=== PATIENT | female | born 1970 | race Caucasian/White ===

== ENCOUNTER 2019-08-26 22:36 | Inpatient (IN) | payer BC ==
[2019-08-27] MEDS ORDERED: Ketorolac INJ* 30 MG/ML 1 ML VIAL IV PUSH ONE (00:56)
--- NOTE | 2019-08-27 00:59 | ED ---
Abdominal Pain/Female - HPI Summary HPI Summary: 48 year old F presenting to [facility] accompanied by complains of worsening RLQ, LLQ, suprapubic pain radiating down her right lower extremity since 2019 AM. No RUQ pain. Patient reports nausea/vomiting 1300 08/25/2019 to 0400 2019. She states she woke up 08/26/2019 AM with abdominal pain. Took Tylenol with some relief. Patient developed chills and diaphoresis 08/26/2019 PM. She states her abdominal pain has been getting worse since 2100 08/26/2019. She states she took ibuprofen a few hours prior to arrival with some relief. Patient reports constipation. No diarrhea. The patient rates the pain 10/10 in severity. Symptoms aggravated by standing up and palpation. Symptoms alleviated by Tylenol and ibuprofen. Medications reviewed. No renal hx. Surgical hx caesarean sections. - History of Current Complaint Chief Complaint: EDAbdPain Stated Complaint: ABD PAIN Time Seen by Provider: 08/27/19 00:50 Hx Obtained From: Patient Onset/Duration: Lasting Hours, Still Present Timing: Constant Severity Currently: Severe Pain Intensity: 10 Pain Scale Used: 0-10 Numeric Location: Discrete At: RLQ, Discrete At: LLQ, Suprapubic Radiates: Yes Radiates to: Other - right lower extremity Aggravating Factor(s): Other: - standing up and palpation Alleviating Factor(s): Other: - Tylenol and ibuprofen Associated Signs and Symptoms: Positive: Diaphoresis, Constipation, Nausea, Vomiting, Other: - chills. Negative: Diarrhea Allergies/Adverse Reactions: Allergies Allergy/AdvReac Type Severity Reaction Status Date / Time No Known Allergies Allergy Verified 08/26/19 22:41 Home Medications: Home Medications Norethindrone-Ethinyl Estrad [Nortrel 0.5-35-28 Tablet] 1 tab PO DAILY 08/27/19 [History Confirmed 08/27/19] PMH/Surg Hx/FS Hx/Imm Hx History: Denies: Hx Acute Renal Failure, Hx Chronic Renal Failure, Hx Dialysis, Hx Kidney Infection, Hx Kidney Stones, Hx Renal Disease Musculoskeletal History: Reports: Hx Arthritis, Hx of Fracture(s) Sensory History: Reports: Hx Contacts or Glasses Opthamlomology History: Reports: Hx Contacts or Glasses - Cancer History Hx Chemotherapy: No Hx Radiation Therapy: No - Surgical History Surgery Procedure, Year, and Place: section Infectious Disease History: No Infectious Disease History: Denies: Traveled Outside the [place] in Last 30 Days - Family History Known Family History: Positive: Other - NEG: Breast cancer - Social History Alcohol Use: Occasionally Substance Use Type: Reports: None Hx Tobacco Use: No Smoking Status (MU): Never Smoked Tobacco Review of Systems Positive: Chills, Skin Diaphoresis Positive: Abdominal Pain, Vomiting, Nausea, Other - constipation. Negative: Diarrhea All Other Systems Reviewed And Are Negative: Yes Physical Exam - Summary Physical Exam Summary: Appearance: Patient is an uncomfortable appearing woman who is otherwise in no acute distress Skin: Warm, dry, no obvious rash Eyes: sclera anicteric, no conjunctival pallor ENT: mucous membranes moist, pharynx appears normal Neck: Supple, nontender Respiratory: Clear to auscultation, no signs of respiratory distress Cardiovascular: Normal S1, S2. No murmurs. Normal distal pulses in tibial and radial bilaterally. Abdomen: Patient is quite apprehensive when palpated anywhere in her abdomen. It was difficult to localize her tenderness. No abdominal distension. Normal active bowel sounds Musculoskeletal: Normal, Strength/ROM Intact Neurological: A&Ox3, awake and alert, mentation is normal, speech is fluent and appropriate Psychiatric: affect is normal, does not appear anxious or depressed Triage Information Reviewed: Yes Vital Signs On Initial Exam: Initial Vitals Temp Pulse Resp BP Pulse Ox 96.1 F 88 20 150/103 98 08/26/19 22:39 08/26/19 22:39 08/26/19 22:39 08/26/19 22:39 08/26/19 22:39 Vital Signs Reviewed: Yes Procedures - Sedation Patient Received Moderate/Deep Sedation with Procedure: No Diagnostics - Vital Signs Vital Signs Temp Pulse Resp BP Pulse Ox 08/26/19 22:39 96.1 F 88 20 150/103 98 - Laboratory Result Diagrams: 08/29/19 09:42 08/29/19 09:40 Lab Statement: Any lab studies that have been ordered have been reviewed, and results considered in the medical decision making process. - CT ABD/PEL CT Interpretation Completed By: Radiologist Summary of CT Findings: 1. Acute appendicitis. 2. Small amount of free intraperitoneal fluid. 3. Enlarged uterus. 4. Mild alveolar opacities in the lower lungs bilaterally suggesting small pneumonias. ED physician has reviewed this report. Re-Evaluation - Re-Evaluation First Eval Re-Evaluation Time: 05:08 Comment: [facility] radiologist called to report ABD/PEL CT findings Second Eval Re-Evaluation Time: 05:14 Comment: patient and updated on CT ABD/PEL findings Abdominal Pain Fem Course/Dx - Course Course Of Treatment: 48 y/o F c/o worsening RLQ, LLQ, suprapubic pain radiating down her right lower extremitysince 08/26/2019 AM. Patient reports vomiting 1300 to 0400 08/26/2019. She states she woke up 08/26/2019 AM with abdominal pain. Took Tylenol with some relief. Patient developed chills and diaphoresis 08/26/2019 PM. She states her abdominal pain has been getting worse since 2100 2019. She states she took ibuprofen with some relief. Patient reports constipation. No diarrhea. Upon exam, the patient is an uncomfortable appearing woman who is otherwise in no acute distress. Patient is quite apprehensive when palpated anywhere in her abdomen. It was difficult to localize her tenderness. No abdominal distension. Normal active bowel sounds. Bloodwork with no significant abnormalities except for WBC 15.8, RBC 5.11, sodium 134, carbon dioxide 21, creatinine 1.43, glucose 141, total bilirubin 1.40, CRP 374.25, lipase <10. Urinalysis with no significant abnormalities except for protien 2+, trace ketones, bilirubin 1+, WBC 2+, bacteria 1+, glucose 1+. In the ED course, the patient was given morphine, normal saline fluids, ketorolac. ABD/PEL CT shows per radiologist: 1. Acute appendicitis. 2. Small amount of free intraperitoneal fluid. 3. Enlarged uterus. 4. Mild alveolar opacities in the lower lungs bilaterally suggesting small pneumonias. Patient started on Zosyn. Spoke with Dr. Lopes surgery who agrees to admit patient. - Diagnoses Provider Diagnoses: Appendicitis - Provider Notifications Discussed Care Of Patient With: El Noble Discussed With Above Provider: 06:05 Instructed by Provider To: Admit As Inpatient Discharge ED - Sign-Out/Discharge Documenting (check all that apply): Patient Departure - Discharge Plan Condition: Good Disposition: ADMITTED TO [facility] - Billing Disposition and Condition Condition: GOOD Disposition: Admitted to [facility] - Attestation Statements Document Initiated by Gale: Yes Documenting Scribe: Coreen Schilling Provider For Whom Gale is Documenting (Include Credential): Sumit Victoria MD Scribe Attestation: Coreen Rosales, scribed for Sumit Victoria MD on 08/30/19 at 0631. Scribe Documentation Reviewed: Yes Provider Attestation: The documentation as recorded by the [email or web address] accurately reflects the service I personally performed and the decisions made by me, Sumit Victoria MD Status of Scribe Document: Viewed
[2019-08-27 01:11] LABS: Hematocrit 45 % (35-47); Hemoglobin 15.8 g/dL (12.0-16.0); Mean Corpuscular HGB Conc 35 g/dL (31-36); Mean Corpuscular Hemoglobin 31 pg (27-31); Mean Corpuscular Volume 89 fL (80-97); Mean Platelet Volume 9.4 fL (7.4-10.4); Platelet Count 291 10^3/uL (150-450); Red Blood Count 5.11 10^6 /uL (3.70-4.87); Red Cell Distribution Width 13 % (10-15); White Blood Count 15.8 10^3/uL (3.5-10.8)
[2019-08-27 01:27] LABS: ALT 24 U/L (7-52); AST 14 U/L (13-39); Albumin 4.4 g/dL (3.2-5.2); Albumin/Globulin Ratio 1.2 (1-3); Alkaline Phosphatase 71 U/L (34-104); Anion Gap 11 mmol/L (2-11); BUN/Creatinine Ratio 9.8 (8-20); Blood Urea Nitrogen 14 mg/dL (6-24); C Reactive Protein 374.25 mg/L (<8.01); CO2 Carbon Dioxide 21 mmol/L (22-32); Calcium 9.6 mg/dL (8.6-10.3); Chloride 102 mmol/L (101-111); EGFR African American 47.8 (>60); EGFR Non-African American 39.5 (>60); Globulin 3.6 g/dL (2-4); Glucose 141 mg/dL (70-100); Potassium 3.7 mmol/L (3.5-5.0); Sodium 134 mmol/L (135-145)
[2019-08-27 02:15] LABS: Urine Appearance Cloudy; Urine Bilirubin 1+ (Negative); Urine Blood Negative (Negative); Urine Color Amber; Urine Glucose 1+(50 mg/dL) (Negative); Urine Ketones Trace (Negative); Urine Nitrite Negative (Negative); Urine Protein 2+(100 mg/dL) (Negative); Urine Specific Gravity 1.032 (1.010-1.030); Urine Urobilinogen Negative (Negative)
[2019-08-27 02:18] LABS: Urine Bacteria 1+ (Absent); Urine Red Blood Cell Absent (Absent); Urine Squamous Epithelial Cell Present (Absent); Urine Transitional Epithelial Present (Absent); Urine White Blood Cell 2+(11-20/hpf) (Absent)
[2019-08-27] MEDS ORDERED: Morphine 4 MG/ML VIAL (1 ml) 4 MG/ML VIAL IV PRN (02:19)
[2019-08-27] MEDS ORDERED: NS 0.9% 1000 ML** 2,000 ML IV ONE (02:19)
[2019-08-27] MEDS ORDERED: Morphine 4 MG/ML VIAL (1 ml) 4 MG/ML VIAL IV ONE (02:19)
[2019-08-27] MEDS ORDERED: Iodixanol* (CONTRAST) 320 MG/ML 100 ML SDV IV ONE (03:22)
[2019-08-27] MEDS ORDERED: Piperacillin/Tazobac ADVAN(*) 3.375 GM in NS 0.9% 100 ML* 100 ML IVPB ONE (04:32)
[2019-08-27] MEDS ORDERED: NS 0.9% 1000 ML** 1,000 ML IV SCH ×2 (04:45→08:45)
[2019-08-27] MEDS ORDERED: Lactated Ringers 1000 ML Bag* 1,000 ML IV SCH (05:00)
[2019-08-27 05:17] LABS: ABS Basophils 0.1 10^3/ul (0-0.2); ABS Lymphocytes 0.9 10^3/ul (1.0-4.8); ABS Monocytes 0.8 10^3/ul (0-0.8); ABS Neutrophils 13.9 10^3/ul (1.5-7.7)
[2019-08-27] MEDS ORDERED: HYDROmorphone INJ* 0.5 MG/0.5 ML SYRINGE IV SLOW PU PRN (06:05)
[2019-08-27] MEDS ORDERED: Ondansetron INJ* 2 MG/ML VIAL IV PRN ×2 (06:05→08:40)
[2019-08-27] MEDS ORDERED: Acetaminophen TAB* 325 MG PO PRN (06:05)
[2019-08-27] MEDS ORDERED: HYDROmorphone INJ1* 1 MG/ML SYRINGE IV SLOW PU PRN (08:40)
[2019-08-27] MEDS ORDERED: Piperacillin/Tazobactam VIAL*) 3.375 GM in NS 0.9% 100 ML* 100 ML IVPB SCH ×2 (09:00)
[2019-08-27] MEDS: HYDROmorphone INJ* 0.5 MG/0.5 ML SYRINGE IV SLOW PU PRN (09:54)
--- NOTE | 2019-08-27 10:59 | HP ---
<NirajDemetrius - Last Filed: 08/27/19 17:14> History of Present Illness - History of Present Illness Reason for Visit: Abdominal Pain History of Present Illness: 48 yo female presents with 2 day hx of Nausea and vomiting ans abdominal pain. Thought she had "the bug". No diarrhea, + constipation, last bm 2 days ago. Yesterday started having abdominal pain, crampy at first, superpubic, and across lower abdomen, then becoming sharp, continuous, couldn't find relief, came to ED. Low grade temps. Seen now in ED, in mild distress. - Past Medical History Dermatology: Basal cell - Past Surgical History Past Surgical History: - Past Family History Family History: Other - BCC, Prostate cancer father, BCC parents - Past Social History Smoke: No Occupation: Teacher Alcohol: Occasional Drugs: None Lives: With Family Domestic Violence: Negative Review of Systems - Review of Systems Constitutional: Positive: Fever - Sharp Abdominal pain RLQ, Other Eyes: Negative: Pain, Vision Change, Conjunctivae Inflammation, Eyelid Inflammation, Redness, Other ENT: Negative: Ear Pain, Ear Discharge, Nose Pain, Nose Discharge, Nose Congestion, Mouth Pain, Mouth Swelling, Throat Pain, Throat Swelling, Other Respiratory: Negative: Cough, Dry, Shortness of Breath, Hemoptysis, SOB with Excertion, Pleuritic Pain, Sputum, Wheezing Cardiovascular: Negative: Chest Pain, Palpitations, Orthopnea, Paroxysmal Noc. Dyspnea, Edema, Light Headedness, Other Gastrointestinal: Positive: Nausea, Vomiting, Abdominal Pain, Constipation Genitourinary: Negative: Dysuria, Frequency, Incontinence, Hematuria, Retention , Other Musculoskeletal: Positive: Other - hip pain Neurological: Negative: Weakness, Numbness, Incoordination, Change in Speech, Confusion, Seizures, Other - Medications/Allergies Allergies/Adverse Reactions: Allergies Allergy/AdvReac Type Severity Reaction Status Date / Time No Known Allergies Allergy Verified 08/26/19 22:41 Medications: Current Medications Acetaminophen (Tylenol Tab*) 650 mg PO Q4H PRN PRN Reason: TEMPERATURE > 100.4 Hydromorphone HCl (Dilaudid Inj*) 0.5 mg IV SLOW PU Q1H PRN PRN Reason: PAIN - SEVERE Last Admin: 08/27/19 09:54 Dose: 0.5 mg Sodium Chloride (Ns 0.9% 1000 Ml) 1,000 mls @ 175 mls/hr IV PER RATE [facility] Last Admin: 08/27/19 06:30 Dose: 175 mls/hr Sodium Chloride (Ns 0.9% 1000 Ml) 1,000 mls @ 125 mls/hr IV PER RATE JESSICA Sodium Chloride (Ns 0.9% 1000 Ml) 1,000 mls @ 150 mls/hr IV PER RATE [facility] Piperacillin Sod/Tazobactam (Sod 3.375 gm/ Sodium Chloride) 100 mls @ 25 mls/ hr IVPB Q8H [facility] Last Admin: 08/27/19 10:19 Dose: 25 mls/hr Morphine Sulfate (Morphine 4 Mg/Ml Vial (1 Ml)) 4 mg IV Q1H PRN PRN Reason: PAIN - MODERATE Last Admin: 08/27/19 05:18 Dose: 4 mg Ondansetron HCl (Zofran Inj*) 4 mg IV Q4H PRN PRN Reason: NAUSEA/VOMITING Exam - Exam Vital Signs: Vital Signs Temp 99.6 F 08/27/19 10:24 Pulse 103 08/27/19 10:24 Resp 20 08/27/19 10:24 BP 131/80 08/27/19 10:24 Pulse Ox 92 08/27/19 10:24 Intake & Output 08/26/19 08/27/19 08/27/19 18:59 06:59 18:59 Intake Total 2100 Balance 2100 Weight 195 lb Intake: IV Fluids 2100 Laboratory Tests 08/27/19 08/27/19 01:02 01:02 WBC 15.8 H C-Reactive Protein 374.[address] 08/27/2019 IMPRESSION: 1. Acute appendicitis. 2. Small amount of free intraperitoneal fluid. 3. Enlarged uterus. 4. Mild alveolar opacities in the lower lungs bilaterally suggesting small pneumonias. General: Alert, Oriented x3, Cooperative, Mild distress HEENT: Atraumatic, EOMI, Mucous membr. moist/pink Lungs: Clear to auscultation Cardiovascular: Other - Tachy at 106 Abdomen: Normal bowel sounds, Soft, Other - ++ Tenderness RLQ, +LLQ Extremities: Other - calves soft non tender Skin: No rashes Neurological: Cranial nerves 3-12 NL Psych/Mental Status: Mental status NL, Mood NL Assessment/Plan - Assessment/Plan Assessment: 48 yo female with 2 day hx of N/V, Abdominal pain now localized to the RLQ, WBC 15.8. CRP 375, CT findings of acute appendicitis Plan: Admit NPO IV Zosyn has been started, continue Q6 hrs IV Analgesia For OR later today Patient has been seen and examined by Dr Sorto. Risks and benefits of surgery have been discussed with patient and her . All questions were answered. <Bart Sorto - Last Filed: 08/28/19 09:13> History of Present Illness - History of Present Illness History of Present Illness: Patient seen and examined prior to KEVIN visit. Two-day history of abdominal pain with CT evidence of acute appendicitis. Acute renal failure and SIRS. I recommend urgent appendectomy. Details of procedure: The risks, benefits and alternatives. I discussed with the patient that possibly my partner would be doing the procedure. Review of Systems - Medications/Allergies Medications: Current Medications Acetaminophen (Tylenol Tab*) 650 mg PO Q4H PRN PRN Reason: PAIN-MILD/TEMP >/= 100.4 Last Admin: 08/27/19 20:31 Dose: 650 mg Hydromorphone HCl (Dilaudid Inj*) 0.5 mg IV SLOW PU Q1H PRN PRN Reason: PAIN - SEVERE Last Admin: 08/28/19 03:59 Dose: 0.5 mg Sodium Chloride (Ns 0.9% 1000 Ml) 1,000 mls @ 125 mls/hr IV PER RATE [facility] Last Admin: 08/28/19 08:14 Dose: 125 mls/hr Piperacillin Sod/Tazobactam (Sod 3.375 gm/ Sodium Chloride) 100 mls @ 25 mls/ hr IVPB 0200,1000,1800 [facility] Last Admin: 08/28/19 02:00 Dose: 25 mls/hr Ibuprofen (Motrin Tab*) 600 mg PO Q6H PRN PRN Reason: PAIN - MILD Morphine Sulfate (Morphine 4 Mg/Ml Vial (1 Ml)) 4 mg IV Q1H PRN PRN Reason: PAIN - MODERATE Last Admin: 08/27/19 05:18 Dose: 4 mg Ondansetron HCl (Zofran Inj*) 4 mg IV Q4H PRN PRN Reason: NAUSEA/VOMITING Oxycodone/Acetaminophen (Percocet 5/325 Tab*) 1 tab PO Q4H PRN PRN Reason: PAIN - MODERATE Pharmacy Consult (Zosyn Per Pharmacy*) 1 note FOLLOW UP .ZOSYN PER PHARMACY [facility] Potassium Chloride (Klor Con Er Tab*) 20 meq PO BID [facility] Stop: 08/28/19 21:01 Exam - Exam Vital Signs: Vital Signs (72 hours) 08/26/19 08/27/19 08/27/19 22:39 00:54 00:59 Temperature 96.1 F Pulse Rate 88 111 112 Respiratory 20 Rate Blood Pressure 150/103 119/81 (mmHg) O2 Sat by Pulse 98 97 Oximetry 08/27/19 08/27/19 08/27/19 01:01 01:03 01:24 Temperature Pulse Rate 114 111 101 Respiratory Rate Blood Pressure 108/77 100/76 (mmHg) O2 Sat by Pulse 97 94 97 Oximetry 08/27/19 08/27/19 08/27/19 02:00 02:24 02:32 Temperature Pulse Rate 114 99 Respiratory 17 Rate Blood Pressure 133/80 (mmHg) O2 Sat by Pulse 97 98 Oximetry 08/27/19 08/27/19 08/27/19 02:54 03:00 03:23 Temperature Pulse Rate 82 86 87 Respiratory Rate Blood Pressure 93/70 114/77 (mmHg) O2 Sat by Pulse 97 97 96 Oximetry 08/27/19 08/27/19 08/27/19 03:54 04:00 04:29 Temperature Pulse Rate 90 91 107 Respiratory Rate Blood Pressure 123/73 130/87 (mmHg) O2 Sat by Pulse 95 94 96 Oximetry 08/27/19 08/27/19 08/27/19 04:49 04:54 05:00 Temperature 98.8 F Pulse Rate 102 103 102 Respiratory 17 Rate Blood Pressure 130/87 113/79 (mmHg) O2 Sat by Pulse 96 95 95 Oximetry 08/27/19 08/27/19 08/27/19 05:18 05:24 05:53 Temperature Pulse Rate 99 94 Respiratory 19 Rate Blood Pressure 110/78 117/75 (mmHg) O2 Sat by Pulse 96 96 Oximetry 08/27/19 08/27/19 08/27/19 06:00 06:23 06:31 Temperature 98.6 F Pulse Rate 95 94 97 Respiratory 15 Rate Blood Pressure 117/76 117/76 (mmHg) O2 Sat by Pulse 94 95 96 Oximetry 08/27/19 08/27/19 08/27/19 06:53 06:56 07:01 Temperature Pulse Rate 95 97 Respiratory 19 Rate Blood Pressure 116/75 (mmHg) O2 Sat by Pulse 94 93 Oximetry 08/27/19 08/27/19 08/27/19 07:24 07:54 08:01 Temperature Pulse Rate 101 96 94 Respiratory Rate Blood Pressure 113/82 116/79 (mmHg) O2 Sat by Pulse 94 94 93 Oximetry 08/27/19 08/27/19 08/27/19 08:18 08:24 08:54 Temperature Pulse Rate 105 107 Respiratory 20 Rate Blood Pressure 128/80 139/104 (mmHg) O2 Sat by Pulse 92 91 Oximetry 08/27/19 08/27/19 08/27/19 09:00 09:24 09:54 Temperature Pulse Rate 99 102 98 Respiratory 20 Rate Blood Pressure 130/79 117/80 (mmHg) O2 Sat by Pulse 93 93 94 Oximetry 08/27/19 08/27/19 08/27/19 10:00 10:24 13:38 Temperature 99.6 F 97.7 F Pulse Rate 96 103 Respiratory 20 20 Rate Blood Pressure 131/80 (mmHg) O2 Sat by Pulse 93 92 Oximetry 08/27/19 08/27/19 08/27/19 13:41 13:46 13:50 Temperature Pulse Rate 114 111 102 Respiratory 20 24 Rate Blood Pressure 156/85 136/87 120/70 (mmHg) O2 Sat by Pulse 96 90 93 Oximetry 08/27/19 08/27/19 08/27/19 13:55 14:00 14:15 Temperature Pulse Rate 99 98 91 Respiratory 19 19 19 Rate Blood Pressure 109/70 113/72 117/67 (mmHg) O2 Sat by Pulse 92 93 95 Oximetry 08/27/19 08/27/19 08/27/19 14:30 14:45 14:50 Temperature 98.7 F Pulse Rate 90 89 84 Respiratory 19 16 14 Rate Blood Pressure 114/72 115/67 109/63 (mmHg) O2 Sat by Pulse 95 96 93 Oximetry 08/27/19 08/27/19 08/27/19 15:02 15:59 16:52 Temperature 99.1 F 98.5 F 98.8 F Pulse Rate 97 80 84 Respiratory 20 14 18 Rate Blood Pressure 130/69 110/72 116/66 (mmHg) O2 Sat by Pulse 96 96 97 Oximetry 08/27/19 08/27/19 08/27/19 18:46 20:00 21:06 Temperature 97.1 F 98.4 F Pulse Rate 91 89 Respiratory 24 17 22 Rate Blood Pressure 116/65 108/61 (mmHg) O2 Sat by Pulse 97 93 Oximetry 08/27/19 08/28/19 08/28/19 23:07 03:09 03:59 Temperature 98.1 F 98.1 F Pulse Rate 87 81 Respiratory 17 17 17 Rate Blood Pressure 116/65 111/64 (mmHg) O2 Sat by Pulse 98 95 Oximetry 08/28/19 08/28/19 05:42 07:53 Temperature 98.7 F Pulse Rate 84 Respiratory 16 14 Rate Blood Pressure 109/63 (mmHg) O2 Sat by Pulse 93 Oximetry
[2019-08-27] MEDS ORDERED: Bupivacaine 0.25% SDV* 30 ML ONE (11:44)
[2019-08-27] MEDS ORDERED: HYDROmorphone INJ1* 1 MG/ML SYRINGE ONE (12:03)
[2019-08-27] MEDS ORDERED: Propofol* 10 MG/ML 20 ML BTL ONE (12:03)
[2019-08-27] MEDS ORDERED: Rocuronium* 10 MG/ML VIAL ONE ×2 (12:03→12:52)
--- NOTE | 2019-08-27 12:14 | PN ---
Progress Note - Progress Note Date of Service: 08/27/19 Note: Surgery Progress Note I was called to see this patient by Dr. Sorto. Briefly, patient is a 48 yo F with nausea, emesis and diffuse abdominal pain since Saturday, which worsened last night. She presented to the ED and was found to have a WBC of 16, and a CT consistent with appendicitis. Please see full HP by Toby Healy. I reviewed her imaging, labs and on exam she is diffusely tender. I discussed with her about performing a laparoscopic, possible open appendectomy. We discussed the risks, benefits and alternatives or surgery. The risks include but are not limited to bleeding, infection, injury to nearby structures. She understands and wishes to proceed.
[2019-08-27] MEDS ORDERED: Dexamethasone IV* 4 MG/ML 1 ML (4 MG) ONE (13:11)
[2019-08-27] MEDS ORDERED: Ondansetron INJ* 2 MG/ML VIAL ONE (13:11)
[2019-08-27] MEDS ORDERED: Ketorolac INJ* 30 MG/ML 1 ML VIAL ONE (13:11)
[2019-08-27] MEDS ORDERED: HYDROmorphone INJ1* 1 MG/ML SYRINGE IV PRN (13:17)
[2019-08-27] MEDS ORDERED: Naloxone* 0.4 MG/ML 1 ML VIAL IV PRN (13:17)
[2019-08-27] MEDS ORDERED: Sugammadex * 200 MG/2 ML VIAL IV PUSH ONE (13:28)
[2019-08-27] MEDS: NS 0.9% 1000 ML** 1,000 ML IV SCH (15:22)
[2019-08-27] MEDS ORDERED: Zosyn per Pharmacy* NOTE FOLLOW UP SCH (16:00)
[2019-08-27] MEDS: Piperacillin/Tazobactam VIAL*) 3.375 GM in NS 0.9% 100 ML* 100 ML IVPB SCH (17:37)
[2019-08-27] MEDS: Acetaminophen TAB* 325 MG PO PRN (20:31)
--- NOTE | 2019-08-27 22:54 | OP ---
DATE OF OPERATION: 08/27/19 - ROOM #333 DATE OF : 74 SERVICE: General Surgery. SURGEON: Bel Yanez MD RETAIL OPERATIONS SPECIALIST: Selin Balderas NP ANESTHESIOLOGIST: Dr. Pedro Easton. ANESTHESIA: General endotracheal anesthesia. PRE-OP DIAGNOSIS: Acute appendicitis. POST-OP DIAGNOSIS: Perforated, gangrenous appendicitis. OPERATIVE PROCEDURE: Laparoscopic appendectomy. INDICATIONS: Ms. Munoz is a very pleasant 48-year-old female who presented to the emergency room with 2 days of nausea, vomiting, generalized abdominal pain that began to worsen and radiate to the right lower quadrant last night. She presented to the emergency room where she was found to have an elevated white blood cell count to 15.8, and signs of sepsis, including mild tachycardia in the low 100s. On CT abdomen and pelvis there was evidence of appendicitis. On her physical exam she was diffusely tender and I discussed with her that very likely she already had a perforated or gangrenous appendicitis. She therefore gave informed consent for a laparoscopic appendectomy. She understood that the risks included, but were not limited to, bleeding, infection , injury to nearby structures. She understood the alternatives and benefits as well and she wished to proceed. ESTIMATED BLOOD LOSS: Minimal, less than 10 cc. SPECIMEN: Appendix. DESCRIPTION OF PROCEDURE: The patient was brought back to the operating room and placed on the operating table in the supine position. Sequential compression devices were placed on bilateral lower extremities for DVT prophylaxis. Zosyn had been administered prior to entering the operating room. General endotracheal anesthesia was induced. The patient's left arm was tucked and her abdomen was then prepped and draped in normal sterile fashion. Prior to beginning the surgery, a time-out was performed verifying the patient' s name, date of , and the procedure to be performed. Next, 0.25% Marcaine was infiltrated into the left upper quadrant at San's point. An 11-blade scalpel was used to make a small incision and then the Veress needle was advanced into the abdominal wall. A saline drop test was performed that confirmed that it was intraabdominal. After this, insufflation was obtained to 15 mmHg. Next, local anesthesia was infiltrated into the infraumbilical fold. A skin incision was made in what appeared to be an old scar, although the patient did say she had no prior laparoscopic procedures. A 5-mm Optiview trocar was used to enter the abdomen at this infraumbilical location under direct visualization. General inspection of the abdominal cavity showed that there was no apparent injury that had been made upon entry with the 5-mm trocar or with the Veress needle. The Veress needle was removed from the left upper quadrant. Next, under direct visualization, the remaining two 5-mm trocars were placed after administering local anesthesia, one was placed in the left lower quadrant and the other one was placed in the lower mid abdomen above her uterus, which was adherent to the abdominal wall, likely from her multiple prior C-sections. Next, the right lower quadrant was investigated. There was purulent fluid present within the right lower quadrant. Ther terminal ileum was adherent and draped over the cecum. With great care, it was bluntly off the cecum and displaced towards the left upper quadrant. The appendix was traced inferiorly towards the pelvis. It was contained in a fibrotic pocket below the uterus. Once it was bluntly freed, it was noted to be clearly gangrenous and dilated. The tip was already perforated and several small stool balls were identified that were later suctioned out. Once the tip was identified, the appendix was able to be elevated. The mesoappendix was then divided using the LigaSure. The base was nongangrenous. After isolating the mesoappendix, a 60-mm márquez Endo KATIA stapler was used to staple across the base of the appendix. The appendix was then placed into an Endo Catch bag and removed from the abdomen as a specimen. After this was done, the staple line was examined. It was hemostatic and intact. There was no bleeding at the staple line or at the mesoappendix. Copious irrigation was performed in the right lower quadrant and in the pelvis where the appendix had perforated. Approximately 3 L of normal saline was used to irrigate both the right lower quadrant, the pelvis, and over the right upper quadrant where there was also purulent fluid present. After this was done, a general inspection of the abdominal cavity did not show any apparent stool balls or any purulent fluid pockets; therefore, attention was turned towards closure. The 5-mm trocar site at the umbilicus had been upsized in order to allow the stapler to be used. The 12-mm trocar was then removed and then the fascia was closed using 0 Vicryl suture on a suture passer. After this was done, desufflation was obtained and the remaining two 5-mm trocars were removed under direct visualization. All the skin incisions were closed using interrupted 4-0 Monocryl sutures. Sterile dressing was then placed. The patient's anesthesia was reversed and she was taken to the PACU in stable condition. At the end of the case, all counts were correct and I was present during the entirety of the case. [id number]/[facility] #: [id number] CHENCHO
[2019-08-28] MEDS: NS 0.9% 1000 ML** 1,000 ML IV SCH ×2 (00:05→08:14)
[2019-08-28] MEDS: Piperacillin/Tazobactam VIAL*) 3.375 GM in NS 0.9% 100 ML* 100 ML IVPB SCH ×3 (02:00→17:45)
[2019-08-28] MEDS: HYDROmorphone INJ* 0.5 MG/0.5 ML SYRINGE IV SLOW PU PRN (03:59)
[2019-08-28 05:39] LABS: ABS Lymphocytes 1.2 10^3/ul (1.0-4.8); ABS Monocytes 0.9 10^3/ul (0-0.8); ABS Neutrophils 13.1 10^3/ul (1.5-7.7); Hematocrit 34 % (35-47); Hemoglobin 11.4 g/dL (12.0-16.0); Lymphocyte % 7.7 %; Mean Corpuscular HGB Conc 34 g/dL (31-36); Mean Corpuscular Hemoglobin 31 pg (27-31); Mean Corpuscular Volume 90 fL (80-97); Mean Platelet Volume 9.8 fL (7.4-10.4); Platelet Count 215 10^3/uL (150-450); Red Blood Count 3.71 10^6 /uL (3.70-4.87); Red Cell Distribution Width 13 % (10-15); White Blood Count 15.2 10^3/uL (3.5-10.8)
[2019-08-28 06:00] LABS: BUN/Creatinine Ratio 11.9 (8-20); Calcium 7.5 mg/dL (8.6-10.3); EGFR African American 88.3 (>60); Potassium 3.2 mmol/L (3.5-5.0)
[2019-08-28] MEDS ORDERED: Ibuprofen TAB* 600 MG PO PRN (08:27)
--- NOTE | 2019-08-28 08:50 | PN ---
Progress Note - Progress Note Date of Service: 08/28/19 SOAP: Subjective: Patient reports that pain is improved from yesterday, rated a 4/10. The pain is worse upon movement and causes mild SOB. She states the SOB associated with the pain has been present for the entire duration of the appendicitis, and has improved since two days ago. States she also has some mild pain near her left diaphragm. She is tolerating clear liquids well. No n/v. States she is very hungry and would like to eat real food. Has had diarrhea, denies any blood in the stool. Has been ambulating OOB to bathroom only. Denies any chest pain. Objective: Vital Signs Temp 98.7 F 08/28/19 07:53 Pulse 84 08/28/19 07:53 Resp 14 08/28/19 07:53 BP 109/63 08/28/19 07:53 Pulse Ox 93 08/28/19 07:53 Intake & Output 08/27/19 08/28/19 08/28/19 18:59 06:59 18:59 Intake Total 1540 2185 995 Output Total 0 1155 Balance 1540 1030 995 Intake: IV Fluids 1300 1085 995 ABX - ZOSYN 105 LR 1300 NS (0.9%) 980 995 IVPB 100 ABX - ZOSYN 100 Oral 240 1000 Output: Urine 0 655 Liquid Stool 500 Other: Estimated Void Medium Date of Last Bowel 08/28/2019 Movement # Bowel Movements 0 1 Estimated Stool Amount Large Physical Exam: General: sitting in bed in NAD CV: RRR, no m/r/g Resp: CTAB, no w/r/r Abdomen: Soft, non-distended. Moderate tenderness to the epigastric area. Dressings c/d/i. Positive bowel sounds throughout. Laboratory Results - last 24 hr 08/28/19 08/28/19 04:27 04:27 WBC 15.2 H RBC 3.71 Hgb 11.4 L Hct 34 L MCV 90 MCH 31 MCHC 34 RDW 13 Plt Count 215 MPV 9.8 Neut % (Auto) 86.4 Lymph % (Auto) 7.7 Kane % (Auto) 5.8 Eos % (Auto) 0.0 Baso % (Auto) 0.1 Absolute Neuts (auto) 13.1 H Absolute Lymphs (auto) 1.2 Absolute Monos (auto) 0.9 H Absolute Eos (auto) 0.0 Absolute Basos (auto) 0.0 Absolute Nucleated RBC 0.0 Nucleated RBC % 0.0 Sodium 137 Potassium 3.2 L Chloride 109 Carbon Dioxide 20 L Anion Gap 8 BUN 10 Creatinine 0.84 Est GFR ( Amer) 88.3 Est GFR (Non-Af Amer) 73.0 BUN/Creatinine Ratio 11.9 Glucose 129 H Calcium 7.5 L Assessment: This is 48 year old female POD #1 s/p appendectomy for perforated appendicitis. White count is still elevated. Potassium low. Plan: Continue Antibiotics. She is tolerating diet well - will advance diet as tolerated. Hypokalemia - will give KCL PO. Continue SCDs in bed, incentive spirometry and ambulating OOB. <Radha Mullins - Last Filed: 08/28/19 14:29> - Progress Note SOAP: Subjective: [Agree with above assessment and plan. I also saw patient and agree with the above exam.] Objective: [] Assessment: [] Plan: [] <David Patino - Last Filed: 08/28/19 16:08>
[2019-08-28] MEDS ORDERED: oxyCODONE/Acetamin 5/325 MG* TAB PO PRN (08:56)
[2019-08-28] MEDS: Potassium Chlor TAB* 20 MEQ TAB.ER PO SCH ×2 (10:06→21:25)
--- NOTE | 2019-08-28 13:55 | PN ---
Progress Note - Progress Note Date of Service: 08/28/19 Note: Surgery Progress Note I saw the patient earlier today, at approximately 11am. This note reflects that visit. S: Patient is doing well. She has not required much pain medication. She tolerated a soft diet this morning. She is passing flatus and ambulating independently. No nausea or emesis. O: Vital Signs: Temp Pulse Resp BP Pulse Ox 98.7 F 100 26 107/63 96 08/28/19 11:19 08/28/19 11:19 08/28/19 11:19 08/28/19 11:19 08/28/19 11:19 Laboratory Results - last 24 hr 08/28/19 08/28/19 04:27 04:27 WBC 15.2 H RBC 3.71 Hgb 11.4 L Hct 34 L MCV 90 MCH 31 MCHC 34 RDW 13 Plt Count 215 MPV 9.8 Neut % (Auto) 86.4 Lymph % (Auto) 7.7 [place] % (Auto) 5.8 Eos % (Auto) 0.0 Baso % (Auto) 0.1 Absolute Neuts (auto) 13.1 H Absolute Lymphs (auto) 1.2 Absolute Monos (auto) 0.9 H Absolute Eos (auto) 0.0 Absolute Basos (auto) 0.0 Absolute Nucleated RBC 0.0 Nucleated RBC % 0.0 Sodium 137 Potassium 3.2 L Chloride 109 Carbon Dioxide 20 L Anion Gap 8 BUN 10 Creatinine 0.84 Est GFR ( Amer) 88.3 Est GFR (Non-Af Amer) 73.0 BUN/Creatinine Ratio 11.9 Glucose 129 H Calcium 7.5 L Intake & Output 08/27/19 08/28/19 08/28/19 22:59 06:59 14:59 Intake Total 740 1685 995 Output Total 400 755 255 Balance 340 930 740 Intake: IV Fluids 1085 995 ABX - ZOSYN 105 NS (0.9%) 980 995 IVPB 100 ABX - ZOSYN 100 Oral 740 500 Output: Urine 400 255 255 Liquid Stool 500 Other: Estimated Void Medium Date of Last Bowel 08/28/2019 Movement # Bowel Movements 0 1 Estimated Stool Amount Large Physical exam: Abdomen- soft, minimally tender, incisions c/d/i with dressings in place Micro: Urine cx- no growth A/P: 48 F POD 1 from laparoscopic appendectomy for perforated appendicitis, doing well. - Continue IV abx, zosyn - Soft diet - HSQ - OOB and ambulating - Likely DC in 1-2 days on oral antibiotics
[2019-08-28] MEDS: Acetaminophen TAB* 325 MG PO PRN (17:51)
[2019-08-29] MEDS: Piperacillin/Tazobactam VIAL*) 3.375 GM in NS 0.9% 100 ML* 100 ML IVPB SCH ×2 (02:07→08:46)
[2019-08-29 07:55] VITALS: BP 125/70
[2019-08-29] MEDS ORDERED: NORETHINDRONE PO SCH (09:00)
[2019-08-29] MEDS ORDERED: ETHINYL ESTRADIOL PO SCH (09:00)
[2019-08-29 09:50] LABS: ABS Basophils 0.1 10^3/ul (0-0.2); ABS Eosinophils 0.4 10^3/ul (0-0.6); ABS Lymphocytes 2.3 10^3/ul (1.0-4.8); ABS Neutrophils 9.6 10^3/ul (1.5-7.7); Eosinophil % 2.8 %; Hematocrit 31 % (35-47); Lymphocyte % 17.4 %; Mean Corpuscular HGB Conc 36 g/dL (31-36); Mean Corpuscular Hemoglobin 31 pg (27-31); Mean Corpuscular Volume 88 fL (80-97); Mean Platelet Volume 9.1 fL (7.4-10.4); Platelet Count 284 10^3/uL (150-450); Red Blood Count 3.51 10^6 /uL (3.70-4.87); Red Cell Distribution Width 13 % (10-15); White Blood Count 13.3 10^3/uL (3.5-10.8)
[2019-08-29 10:06] LABS: BUN/Creatinine Ratio 14.4 (8-20); Calcium 8.1 mg/dL (8.6-10.3); EGFR African American 81.6 (>60); EGFR Non-African American 67.4 (>60)
--- NOTE | 2019-08-29 11:43 | DS ---
DISCHARGE SUMMARY: DATE OF ADMISSION: 08/27/19 DATE OF DISCHARGE: 08/29/19 ADMISSION DIAGNOSIS: Acute appendicitis. DISCHARGE DIAGNOSIS: Perforated appendicitis. SERVICE: General Surgery. ATTENDING SURGEON: Bel Yanez MD HOSPITAL COURSE: Ms. Munoz is a very pleasant 48-year-old female who presented to the emergency room on 08/27/19 with 2 to 3 days of generalized abdominal pain, nausea, vomiting, which then radiated to the right lower quadrant. She was febrile and slightly tachycardiac on admission and a CT abdomen was performed that showed acute appendicitis. She was therefore taken to the operating room on 08/27/19 for a laparoscopic appendectomy. Findings were significant for a perforated appendicitis. However, the patient did very well after surgery. By the day of discharge, on postoperative day #2, the patient was afebrile, her white count was declining and absolute neutrophil count was also declining. She was tolerating a diet without any nausea or vomiting and she was having bowel function. Her pain was controlled with oral pain medications, though on the day of discharge in the morning she did complain of having a different type of right lower quadrant pain that was different from what she experienced the day before. However on exam, she is only mildly tender in this area and otherwise appeared very well. Therefore, she was determined to be an appropriate candidate for discharge with oral antibiotics. DISCHARGE PHYSICAL EXAM: Temperature is 98.7, pulse 86, respiratory rate is 14 , O2 sat is 92% on room air, blood pressure is 125/70. General: A young woman lying very comfortably in bed, in no apparent distress. Abdomen is soft, minimally tender in the right lower quadrant. Incisions are clean, dry, and intact with Steri-Strips in place. Nondistended. LABORATORY VALUES: White blood cell count is 13.3, hemoglobin is 11, hematocrit is 31, platelets 284. Chemistry: Sodium is 141, potassium is 4, chloride is 112, CO2 is 23, BUN 13; creatinine is 0.9, previously was 1.43. Calcium 8.1. DISCHARGE MEDICATIONS: The patient was given prescription for Augmentin 875 mg p.o. b.i.d. for 10 days and another prescription for Percocet 5/325 mg p.o. q.6 hours p.r.n. for severe pain. DISCHARGE INSTRUCTIONS: The patient was given a preprinted handout of postoperative instructions and she was told to call the office for a postoperative appointment in 10 to 14 days. We did review written precautions which include increasing and worsening abdominal pain as well as fevers. She understands all of this. CONDITION: Good. DISPOSITION: To home. [id number]/CPS #: [id number] MTDD
== END 2019-08-29 13:40 | disposition home or self-care (01) | DRG 225 ==
LOC: ED 22:36 → AA 08-27 08:40 → SSU 08-27 08:41
PROVIDERS: ADMIT Surgery; ATTEND Surgery
PROC: 0DTJ4ZZ Resection of Appendix, Percutaneous Endoscopic Approach (ICD-10-PCS; principal; 2019-08-27 13:45)
DX: K35.32 Acute appendicitis with perforation, localized peritonitis, and gangrene, without abscess (principal); N17.9 Acute kidney failure, unspecified; R65.10 Systemic inflammatory response syndrome (SIRS) of non-infectious origin without acute organ dysfunction; K35.891 Other acute appendicitis without perforation, with gangrene; E87.6 Hypokalemia; Z85.828 Personal history of other malignant neoplasm of skin; Z80.42 Family history of malignant neoplasm of prostate; Z80.8 Family history of malignant neoplasm of other organs or systems; Z79.899 Other long term (current) drug therapy
CPT/HCPCS: 36415; 74177; 80048; 80053; 81003; 81015; 83690; 85025; 86140; 87086; 88304; 99284; A9270-GY; J1100; J1170; J1885; J2270; J2405; J2543; J2704; J3490; Q9967